=== PATIENT | male | born 1980 | race Caucasian/White ===

== ENCOUNTER 2016-09-18 10:47 | Emergency (ER) | payer MEDICAID, OTHER ==
[~2016-09-18] VITALS: Ht 180.3 cm; Wt 85.5 kg
[~2016-09-18 10:47] MED LIST: DIVA500T PO; DIVA500T15 PO; HYDR50CA3 PO; LOXA10CA PO; ONDAN4ODT PO
--- OUTSIDE RECORDS SUMMARY | 2016-09-18 10:52 | XMS REPORT | Continuity of Care Document ---
Author Author [facility] Organization [facility] Address Unknown Phone Unavailable Care Team Providers Care Housekeeping Staff Name Role Phone NO, LOCAL PHYSICIAN PCP Unavailable Insurance Providers Payer Name Policy Number Subscriber Name Relationship Self Pay Faina Guerrero 18 Self / Same As Patient Advance Directives Directive Response Recorded Date/Time Advance Directives No 03/22/16 6:39pm Resuscitation Status Full Code 03/22/16 6:39pm Chief Complaint and Reason for Visit Chief Complaint R URETRAL STONE,BRADYCARDIA Reason for Visit Bradycardia Right ureteral stone Problems Active Problems Medical Problem Onset Date Status Bradycardia Unknown Acute Right ureteral stone Unknown Acute Medications Current Home Medications Medication Dose Units Route Directions Days/Qty Instructions Start Date Hydroxyzine Pamoate 50 Mg 50 Mg Oral Twice A Day as needed for Anxiety 03/23/16 Loxapine Succinate 10 Mg 20 Mg Oral Bedtime TAKES 2 (10MG) CAPSULES Divalproex Sodium 500 Mg 500 Mg Oral Daily 03/23/16 Divalproex Sodium 500 Mg 1,000 Mg Oral Bedtime TAKES 2 (500MG) TABLETS 03/23/16 Past Home Medications Medication Directions Ordered Status Ondansetron Hcl 4 Mg Tab, 4 Mg Oral Every 4HRS 03/18/10 Discontinued Divalproex Sodium 500 Mg Tablet., 500 Mg Oral Daily 03/22/16 Discontinued Divalproex Sodium 500 Mg Tablet., 1000 Mg Oral Bedtime 03/22/16 Discontinued Social History Social History Problem Response Recorded Date/Time Alcohol Use Occasionally Uses 03/22/2016 6:40pm Recreational Drug Use No 03/22/2016 6:40pm Recent Foreign Travel No 03/22/2016 6:43pm Recent Infectious Disease Exposure No 03/22/2016 6:43pm Smoking Status Current Everyday Smoker 03/22/2016 6:42pm Type Used Cigarettes 03/23/2016 11:12am Query Response Start Date Stop Date Smoking Status Current Everyday Smoker Hospital Discharge Instructions Patient Instructions Physician Instructions Plan of Care/Instructions/FU: Aggressively hydrate been working in the hot humid conditions Activity as Tolerated: Yes Goal: Proper hydration Discharge Diet: No Restrictions Return to The Hospital For: Recurrence of symptoms Care Plan Patient Instructions:: Aggressively hydrate been working in the hot humid conditions Goal:: Proper hydration Plan of Care Discharge Date 03/23/16 10:40am Disposition 01 HOME, SELF-CARE Instructions/Education Provided DISCHARGE Prescriptions See Medication Section Care Plan and Goals See Discharge Instructions Section Functional Status Query Response Date Recorded Patient Orientation Person Place Time Situation Eyes Open March 23, 2016 11:12am Comprehension Ability Understands Concepts March 23, 2016 9:00am Allergies, Adverse Reactions, Alerts No known allergies. Immunizations No immunization records. Vital Signs Acute Vital Signs Vital Response Date/Time Temperature (Fahrenheit) 97.8 degrees F (97.6 - 99.5) 03/23/2016 10:40am Temperature (Calculated Celsius) 36.04130 degrees C (36.4 - 37.5) 03/23/2016 7:41am Temperature Source Tympanic 03/23/2016 10:40am Pulse Rate (adult) 63 bpm (60 - 90) 03/23/2016 10:40am Respiratory Rate 18 bpm (12 - 24) 03/23/2016 10:40am O2 Sat by Pulse Oximetry 96 % (88 - 100) 03/23/2016 10:40am Blood Pressure 132/70 mm Hg 03/23/2016 10:40am Blood Pressure Mean 76 mm Hg 03/23/2016 4:00am Pain Numeric Pain Scale 0-No Pain 03/23/2016 10:40am Height (Feet) 5 feet 03/22/2016 6:43pm Height (Inches) 11.00 inches 03/22/2016 6:43pm Height (Calculated Centimeters) 180.550433 cm 03/22/2016 6:43pm Weight (Pounds) 188 pounds 03/23/2016 6:00am Weight (Ounces) 6.4 oz 03/23/2016 6:00am Weight (Calculated Grams) 30257.803 gm 03/23/2016 6:00am Weight (Calculated Kilograms) 85.831150 kilograms 03/23/2016 6:00am Calculated BMI 26.5 03/22/2016 6:43pm Capillary Refill Capillary Refill Less Than 3 Seconds 03/22/2016 4:18pm Results Laboratory Results Test Name Result Units Flags Reference Collection Date/Time Result Date/ Time Comments White Blood Count 8.1 10^3/uL 4.3-11.0 03/23/2016 4:15am 03/23/2016 4: 58am Red Blood Count 5.21 10^6/uL 4.35-5.85 03/23/2016 4:15am 03/23/2016 4: 58am Hemoglobin 14.5 G/DL 13.3-17.7 03/23/2016 4:15am 03/23/2016 4:58am Hematocrit 42 % 40-54 03/23/2016 4:15am 03/23/2016 4:58am Mean Corpuscular Volume 81 FL 80-99 03/23/2016 4:1503/23/2016 4: 58am Mean Corpuscular Hemoglobin 28 PG 25-34 03/23/2016 4:15am 03/23/2016 4: 58am Mean Corpuscular Hemoglobin Concent 35 G/DL 32-36 03/23/2016 4:15am 09/2015 4:58am Red Cell Distribution Width 13.6 % 10.0-14.5 03/23/2016 4:15am 2015 4:58am Platelet Count 220 10^3/uL 130-400 03/23/2016 4:15am 03/23/2016 4:58am Mean Platelet Volume 10.0 FL 7.4-10.4 03/23/2016 4:15am 03/23/2016 4: 58am Neutrophils (%) (Auto) 48 % 42-75 03/23/2016 4:15am 03/23/2016 4:58am Lymphocytes (%) (Auto) 40 % 12-44 03/23/2016 4:15am 03/23/2016 4:58am Monocytes (%) (Auto) 10 % 0-12 03/23/2016 4:15am 03/23/2016 4:58am Eosinophils (%) (Auto) 2 % 0-10 03/23/2016 4:15am 03/23/2016 4:58am Basophils (%) (Auto) 0 % 0-10 03/23/2016 4:15am 03/23/2016 4:58am Neutrophils # (Auto) 3.9 X 10^3 1.8-7.8 03/23/2016 4:15am 03/23/2016 4: 58am Lymphocytes # (Auto) 3.3 X 10^3 1.0-4.0 03/23/2016 4:15am 03/23/2016 4: 58am Monocytes # (Auto) 0.8 X 10^3 0.0-1.0 03/23/2016 4:15am 03/23/2016 4: 58am Eosinophils # (Auto) 0.1 10^3/uL 0.0-0.3 03/23/2016 4:15am 03/23/2016 4 :58am Basophils # (Auto) 0.0 10^3/uL 0.0-0.1 03/23/2016 4:15am 03/23/2016 4: 58am Neutrophils % (Manual) 50 % 03/22/2016 2:20pm 03/22/2016 4:53pm Band Neutrophils 0 % 03/22/2016 2:20pm 03/22/2016 4:53pm Lymphocytes % (Manual) 40 % 03/22/2016 2:20pm 03/22/2016 4:53pm Monocytes % (Manual) 9 % 03/22/2016 2:20pm 03/22/2016 4:53pm Eosinophils % (Manual) 0 % 03/22/2016 2:20pm 03/22/2016 4:53pm Basophils % (Manual) 1 % 03/22/2016 2:20pm 03/22/2016 4:53pm Blood Morphology Comment NORMAL 03/22/2016 2:20pm 03/22/2016 4: 53pm Sodium Level 140 MMOL/L 135-145 03/22/2016 2:20pm 03/22/2016 4:53pm Potassium Level 3.5 MMOL/L L 3.6-5.0 03/22/2016 2:2003/22/2016 4:53pm Chloride Level 107 MMOL/L 98-107 03/22/2016 2:20pm 03/22/2016 4:53pm Carbon Dioxide Level 21 MMOL/L 21-32 03/22/2016 2:2003/22/2016 4: 53pm Anion Gap 12 MMOL/L 5-14 03/22/2016 2:03/22/2016 4:53pm Blood Urea Nitrogen 11 MG/DL 7-18 03/22/2016 2:03/22/2016 4:53pm Creatinine 1.03 MG/DL 0.60-1.30 03/22/2016 2:2003/22/2016 4:53pm BUN/Creatinine Ratio 11 03/22/2016 2:03/22/2016 4:53pm Estimat Glomerular Filtration Rate > 60 03/22/2016 2:2015 4:53pm GFR INTERPRETIVE DATA UNITS FOR ESTIMATED GFR (eGFR): mL/min/1.73 M2 REFERENCE RANGE FOR ESTIMATED GFR (eGFR) eGFR NORMAL eGFR >60 MODERATELY DECREASED eGFR 30-59 SEVERLY DECREASED eGFR 15-29 KIDNEY FAILURE <15 (OR DIALYSIS) Glucose Level 116 MG/DL H 70-105 03/22/2016 2:03/22/2016 4:53pm Calcium Level 9.5 MG/DL 8.5-10.1 03/22/2016 2:03/22/2016 4:53pm Total Bilirubin 0.6 MG/DL 0.1-1.0 03/22/2016 2:03/22/2016 4:53pm Alkaline Phosphatase 80 U/L 40-136 03/22/2016 2:03/22/2016 4:53pm Aspartate Amino Transf (AST/SGOT) 18 U/L 5-34 03/22/2016 2:pm 2015 4:53pm Alanine Aminotransferase (ALT/SGPT) 18 U/L 0-55 03/22/2016 2:20pm 03/22 4:53pm Total Protein 7.6 G/DL 6.4-8.2 03/22/2016 2:20pm 03/22/2016 4:53pm Albumin 4.8 G/DL H 3.2-4.5 03/22/2016 2:20pm 03/22/2016 4:53pm Procedures No known history of procedures. Encounters Encounter Location Arrival/Admit Date Discharge/Depart Date Attending Provider Discharged Inpatient (obs) [facility] 03/22/16 5:41pm 10:40am JESSICA SHRESTHA MD Recent Diagnosis Bradycardia Right ureteral stone
--- NOTE | 2016-09-18 10:55 | ED Neurological Problem ---
General Stated Complaint: SEIZURE Source: patient, EMS Exam Limitations: no limitations History of Present Illness Time seen by provider: 10:54 Initial Comments To ER per EMS from home with reports of a seizure. This began just prior to arrival. He does have a seizure history and takes medication for this. He is back to normal now alert and oriented. Denies skipping or missing any doses of seizure medications. Timing/Duration: 1/2 hour Severity: mild Associated Symptoms: seizures Allergies and Home Medications Allergies Coded Allergies: No Known Drug Allergies (Verified , 04/10/08) Home Medications Divalproex Sodium 500 Mg Tab.er.24h 500 MG PO DAILY (Reported) Divalproex Sodium 500 Mg Tab.er.24h 1,000 MG PO HS (Reported) TAKES 2 (500MG) TABLETS Hydroxyzine Pamoate 50 Mg Capsule 50 MG PO BID PRN PRN ANXIETY (Reported) Loxapine Succinate 10 Mg Capsule 20 MG PO HS (Reported) TAKES 2 (10MG) CAPSULES Constitutional: see HPI Eyes: No Symptoms Reported Ears, Nose, Mouth, Throat: no symptoms reported Respiratory: no symptoms reported Cardiovascular: no symptoms reported Musculoskeletal: no symptoms reported Skin: no symptoms reported Psychiatric/Neurological: See HPI Endocrine: No Symptoms Reported Past Iaoojtf-Xvounk-Tqklhb Hx Patient Social History Type Used: Cigarettes Recent Hopitalizations: No Seasonal Allergies Seasonal Allergies: No Surgeries HX Surgeries: Yes Surgeries: Orthopedic Respiratory Hx Respiratory Disorders: No Cardiovascular Hx Cardiac Disorders: No Neurological Hx Neurological Disorders: Yes Reproductive System Hx Reproductive Disorders: No Genitourinary Hx Genitourinary Disorders: No Gastrointestinal Hx Gastrointestinal Disorders: No Musculoskeletal Hx Musculoskeletal Disorders: Yes Musculoskeletal Disorders: Fractures Endocrine Hx Endocrine Disorders: No HEENT HX ENT Disorders: No Cancer Hx Cancer: No Psychosocial Hx Psychiatric Problems: Yes Behavioral Health Disorders: Anxiety, Bipolar Integumentary HX Skin/Integumentary Disorder: No Blood Transfusions Hx Blood Disorders: No Physical Exam Vital Signs Vital Sign - Last 12Hours 09/18/16 10:55 Temp 97.4 Pulse 96 Resp 14 B/P 120/79 Pulse Ox 97 O2 Delivery Room Air Capillary Refill : General Appearance: WD/WN no apparent distress HEENT: PERRL/EOMI normal ENT inspection Neck: non-tender full range of motion Respiratory: no respiratory distress no accessory muscle use Gastrointestinal: normal bowel sounds non tender soft Extremities: normal range of motion non-tender normal inspection Neurologic/Psychiatric: alert normal mood/affect oriented x 3 Skin: normal color warm/dry Progress/Results/Core Measures Results/Orders Lab Results Laboratory Tests Test 09/18/16 10:54 Range/Units Alanine Aminotransferase (ALT/SGPT) 33 0-55 U/L Albumin 4.5 3.2-4.5 G/DL Alkaline Phosphatase 90 40-136 U/L Anion Gap 14 5-14 MMOL/L Aspartate Amino Transf (AST/SGOT) 25 5-34 U/L BUN/Creatinine Ratio 9 Basophils # (Auto) 0.1 0.0-0.1 10^3/uL Basophils (%) (Auto) 1 0-10 % Blood Urea Nitrogen 9 7-18 MG/DL Calcium Level 9.3 8.5-10.1 MG/DL Carbon Dioxide Level 18 L 21-32 MMOL/L Chloride Level 107 98-107 MMOL/L Creatinine 1.02 0.60-1.30 MG/DL Eosinophils # (Auto) 0.2 0.0-0.3 10^3/uL Eosinophils (%) (Auto) 2 0-10 % Estimat Glomerular Filtration Rate > 60 Glucose Level 139 H 70-105 MG/DL Hematocrit 47 40-54 % Hemoglobin 16.3 13.3-17.7 G/DL Lymphocytes # (Auto) 3.6 1.0-4.0 X 10^3 Lymphocytes (%) (Auto) 41 12-44 % Mean Corpuscular Hemoglobin 28 25-34 PG Mean Corpuscular Hemoglobin Concent 34 32-36 G/DL Mean Corpuscular Volume 80 80-99 FL Mean Platelet Volume 9.8 7.4-10.4 FL Monocytes # (Auto) 0.6 0.0-1.0 X 10^3 Monocytes (%) (Auto) 7 0-12 % Neutrophils # (Auto) 4.4 1.8-7.8 X 10^3 Neutrophils (%) (Auto) 50 42-75 % Platelet Count 278 130-400 10^3/uL Potassium Level 4.2 3.6-5.0 MMOL/L Red Blood Count 5.93 H 4.35-5.85 10^6/uL Red Cell Distribution Width 13.3 10.0-14.5 % Serum Alcohol < 10 <10 MG/DL Sodium Level 139 135-145 MMOL/L Total Bilirubin 0.3 0.1-1.0 MG/DL Total Protein 7.7 6.4-8.2 G/DL Valproic Acid (Depakene) Level 33.1 L 50.0-100.0 UG/ML White Blood Count 8.7 4.3-11.0 10^3/uL My Orders Orders-KARLI REEDER APRN Cbc With Automated Diff (09/18/16 10:53) Comprehensive Metabolic Panel (09/18/16 10:53) Ua Culture If Indicated (09/18/16 10:53) Drug Screen Stat (Urine) (09/18/16 10:53) Saline Lock/Iv-Start (09/18/16 10:53) Ns Iv 1000 Ml (Sodium Chloride 0.9%) (09/18/16 11:00) Alcohol (09/18/16 10:56) Valproic Acid (09/18/16 11:22) Vital Signs/I&O Vital Sign - Last 12Hours 09/18/16 10:55 Temp 97.4 Pulse 96 Resp 14 B/P 120/79 Pulse Ox 97 O2 Delivery Room Air Departure Impression Impression: Primary Impression: Seizure disorder Disposition: 01 HOME, SELF-CARE Condition: Stable Departure-Patient Inst. Decision time for Depature: 10:55 Referrals: NO,LOCAL PHYSICIAN (PCP/Family) Primary Care Physician Patient Instructions: Seizures Add. Discharge Instructions: 1. Return to ER for any concerns 2. Follow-up with your doctor next week 3. Continue taking your Depakote. However, your Depakote level was low so you need to take 2 pills in the morning and 2 pills at night KARLI REEDER APRN Sep 18, 2016 10:55
[2016-09-18] MEDS ORDERED: NS IV 1000 ML 1,000 ML IV SCH (11:00)
[2016-09-18 11:01] LABS: BASOPHILS # (AUTO) 0.1 10^3/uL (0.0-0.1); BASOPHILS % (AUTO) 1 % (0-10); EOSINOPHILS # (AUTO) 0.2 10^3/uL (0.0-0.3); EOSINOPHILS % (AUTO) 2 % (0-10); LYMPHOCYTES # (AUTO) 3.6 X 10^3 (1.0-4.0); LYMPHOCYTES % (AUTO) 41 % (12-44); MEAN CORPUSCULAR HEMOGLOBIN 28 PG (25-34); MEAN CORPUSCULAR HGB CONC 34 G/DL (32-36); MEAN CORPUSCULAR VOLUME 80 FL (80-99); MEAN PLATELET VOLUME 9.8 FL (7.4-10.4); MONOCYTES # (AUTO) 0.6 X 10^3 (0.0-1.0); MONOCYTES % (AUTO) 7 % (0-12); NEUTROPHILS # (AUTO) 4.4 X 10^3 (1.8-7.8); NEUTROPHILS % (AUTO) 50 % (42-75); PLATELET COUNT 278 10^3/uL (130-400); RED BLOOD COUNT 5.93 10^6/uL (4.35-5.85); RED CELL DISTRIBUTION WIDTH 13.3 % (10.0-14.5); WHITE BLOOD COUNT 8.7 10^3/uL (4.3-11.0)
[2016-09-18 11:19] LABS: ALANINE AMINOTRANSFERASE 33 U/L (0-55); ALBUMIN 4.5 G/DL (3.2-4.5); ANION GAP 14 MMOL/L (5-14); ASPARTATE AMINO TRANSFERASE 25 U/L (5-34); BILIRUBIN,TOTAL 0.3 MG/DL (0.1-1.0); BLOOD UREA NITROGEN 9 MG/DL (7-18); BUN/CREATININE RATIO 9; CALCIUM 9.3 MG/DL (8.5-10.1); CARBON DIOXIDE 18 MMOL/L (21-32); CHLORIDE 107 MMOL/L (98-107); CREATININE SERUM 1.02 MG/DL (0.60-1.30); GFR ESTIMATED > 60; GLUCOSE 139 MG/DL (70-105); POTASSIUM 4.2 MMOL/L (3.6-5.0); SODIUM 139 MMOL/L (135-145); TOTAL PROTEIN 7.7 G/DL (6.4-8.2)
[2016-09-18 11:21] LABS: ALCOHOL < 10 MG/DL (<10)
[2016-09-18 12:05] VITALS: BP 120/79
== END 2016-09-18 12:05 | disposition home or self-care (01) ==
LOC: EDUNIT# 10:47 → ER 10:48
DX: G40.909 Epilepsy, unspecified, not intractable, without status epilepticus (principal); Z79.899 Other long term (current) drug therapy
CPT/HCPCS: 36415; 80053; 80164; 80320; 85025

== ENCOUNTER 2016-11-15 19:31 | Emergency (ER) | payer MEDICAID ==
[~2016-11-15] VITALS: Ht 180.3 cm; Wt 90.7 kg
[2016-11-15] MEDS ORDERED: RX-NITROGLYCERIN 0.4 MG TAB BTL 25'S SL PRN (19:45)
[2016-11-15] MEDS ORDERED: ASPIRIN 81 MG CHEW (CHILDREN'S ASA) PO ONE (19:45)
[2016-11-15 19:49] LABS: BASOPHILS % (AUTO) 0 % (0-10); EOSINOPHILS # (AUTO) 0.1 10^3/uL (0.0-0.3); EOSINOPHILS % (AUTO) 1 % (0-10); LYMPHOCYTES # (AUTO) 3.2 X 10^3 (1.0-4.0); LYMPHOCYTES % (AUTO) 30 % (12-44); MEAN CORPUSCULAR HEMOGLOBIN 28 PG (25-34); MEAN CORPUSCULAR HGB CONC 35 G/DL (32-36); MEAN CORPUSCULAR VOLUME 81 FL (80-99); MONOCYTES # (AUTO) 0.8 X 10^3 (0.0-1.0); MONOCYTES % (AUTO) 7 % (0-12); NEUTROPHILS # (AUTO) 6.6 X 10^3 (1.8-7.8); NEUTROPHILS % (AUTO) 62 % (42-75); PLATELET COUNT 274 10^3/uL (130-400); RED BLOOD COUNT 6.03 10^6/uL (4.35-5.85); RED CELL DISTRIBUTION WIDTH 13.9 % (10.0-14.5); WHITE BLOOD COUNT 10.6 10^3/uL (4.3-11.0)
[2016-11-15 19:55] LABS: PROTHROMBIN TIME PATIENT 13.1 SEC (12.2-14.7)
[2016-11-15 20:05] LABS: ALANINE AMINOTRANSFERASE 15 U/L (0-55); ALBUMIN 4.6 G/DL (3.2-4.5); AMYLASE 39 U/L (25-125); ANION GAP 11 MMOL/L (5-14); ASPARTATE AMINO TRANSFERASE 15 U/L (5-34); BILIRUBIN,TOTAL 0.4 MG/DL (0.1-1.0); BLOOD UREA NITROGEN 9 MG/DL (7-18); BUN/CREATININE RATIO 10; CALCIUM 9.4 MG/DL (8.5-10.1); CARBON DIOXIDE 25 MMOL/L (21-32); CHLORIDE 104 MMOL/L (98-107); CREATINE KINASE 187 U/L (30-200); GFR ESTIMATED > 60; GLUCOSE 95 MG/DL (70-105); LIPASE 19 U/L (8-78); MAGNESIUM 2.1 MG/DL (1.8-2.4); POTASSIUM 3.7 MMOL/L (3.6-5.0); SODIUM 140 MMOL/L (135-145); TOTAL PROTEIN 7.8 G/DL (6.4-8.2)
[2016-11-15 20:12] LABS: TROPONIN I < 0.30 NG/ML (<0.30)
--- NOTE | 2016-11-15 20:18 | Diagnostic Imaging Report ---
CHEST 1 VIEW, AP/PA ONLY Indication: Chest pain Comparison: 03/18/2010 Findings: No focal airspace disease in the visualized lungs. Please note that the posterior lower lobes are poorly evaluated by portable radiography. No pleural effusion or pneumothorax. Normal cardiomediastinal silhouette. Impression: No acute cardiopulmonary process by portable radiography. Dictated by: Dictated on workstation # [id number]
--- NOTE | 2016-11-15 21:24 | ED Chest Pain ---
General Chief Complaint: Chest Pain Stated Complaint: CP Nursing Triage Note: PT TO ED 6 W/ FAMILY FOR C/O CP ONSET YESTERDAY, WORSE TODAY. REPORTS PAIN ET TINGLING RADIATES INTO LT ARM. DENIES CARDIAC HX BUT DOES REPORT HX OF SEIZURES. Nursing Sepsis Screen: No Definite Risk Source: patient Exam Limitations: no limitations History of Present Illness Time seen by provider: 19:42 Initial Comments PT ARRIVES VIA POV FROM HOME C/O CHEST PAIN--LEFT LOWER CHEST--SINCE YESTERDAY PAIN BEGAN WHILE SITTING, AND IS CONSTANT. EXHALING CAUSES INCREASED PAIN, NOTHING IMPROVES PAIN. HAS NOT TAKEN ANYTHING FOR PAIN YESTERDAY, PAIN RADIATED TO LEFT ARM AND HIS LEFT HAND WAS NUMB, BUT NOT TODAY NO SHORTNESS OF BREATH NO PARESTHESIAS OR MOTOR DEFICITS TODAY NO SWEATS NO COUGH NO SWELLING IN LEGS/ FEET OR PAIN IN CALVES NO HISTORY OF SIMILAR. PCP: [facility] Allergies and Home Medications Allergies Coded Allergies: No Known Drug Allergies (Verified , 04/10/08) Home Medications Divalproex Sodium 500 Mg Tab.er.24h, 500 MG PO DAILY, (Reported) Divalproex Sodium 500 Mg Tab.er.24h, 1,000 MG PO HS, (Reported) TAKES 2 (500MG) TABLETS Hydroxyzine Pamoate 50 Mg Capsule, 50 MG PO BID PRN for ANXIETY, (Reported) Loxapine Succinate 10 Mg Capsule, 20 MG PO HS, (Reported) TAKES 2 (10MG) CAPSULES Review of Systems Constitutional: no symptoms reported Respiratory: No Symptoms Reported Cardiovascular: See HPI, Chest Pain Gastrointestinal: No Symptoms Reported Genitourinary: No Symptoms Reported Musculoskeletal: see HPI Skin: no symptoms reported Psychiatric/Neurological: See HPI Endocrine: No Symptoms Reported Hematologic/Lymphatic: No Symptoms Reported Past Okxzhpo-Sysnvv-Gucxnz Hx Patient Social History Alcohol Use: Occasionally Uses (HISTORY OF ABUSE, NOW ONLY "OCCASIONAL" USE) Recreational Drug Use: Yes (THC) Smoking Status: Current Everyday Smoker (1 PPD) Type Used: Cigars, Cigarettes Recent Foreign Travel: No Contact w/Someone Who Travel: No Recent Infectious Disease Expo: No Recent Hopitalizations: No Seasonal Allergies Seasonal Allergies: No Surgeries HX Surgeries: Yes Surgeries: Orthopedic Respiratory Hx Respiratory Disorders: No Cardiovascular Hx Cardiac Disorders: No Neurological Hx Neurological Disorders: Yes Neurological Disorders: Seizure Disorder Reproductive System Hx Reproductive Disorders: No Genitourinary Hx Genitourinary Disorders: No Gastrointestinal Hx Gastrointestinal Disorders: No Musculoskeletal Hx Musculoskeletal Disorders: Yes Musculoskeletal Disorders: Fractures Endocrine Hx Endocrine Disorders: No HEENT HX ENT Disorders: No Cancer Hx Cancer: No Psychosocial Hx Psychiatric Problems: Yes Behavioral Health Disorders: Anxiety, Bipolar, Depression Integumentary HX Skin/Integumentary Disorder: No Blood Transfusions Hx Blood Disorders: No Physical Exam Vital Signs Vital Sign - Last 12Hours 11/15/16 19:34 Temp 98.8 Pulse 62 Resp 16 B/P (MAP) 127/82 Pulse Ox 96 O2 Delivery Room Air Capillary Refill : Less Than 3 Seconds General Appearance: No Apparent Distress, WD/WN, Other (DIRTY, MALODOROUS, CONSTANT MOUTH MOVEMENTS) HEENT: PERRL/EOMI, Other (VERY POOR DENTITON--UPPER TEETH MISSING, REMAINING TEETH WITH EXTENSIVE DECAY) Neck: Full Range of Motion, Normal Inspection, Non Tender, Supple, No Carotid Bruit, No JVD Respiratory: Chest Non Tender, Normal Breath Sounds, No Accessory Muscle Use, No Respiratory Distress, Other Cardiovascular: Regular Rate, Rhythm, No Edema, No JVD, No Murmur, Normal Peripheral Pulses Gastrointestinal: Normal Bowel Sounds, No Organomegaly, No Pulsatile Mass, Non Tender, Soft Extremity: Normal Capillary Refill, Normal Inspection, Normal Range of Motion, Non Tender, No Calf Tenderness Neurologic/Psychiatric: Alert, Oriented x3, No Motor/Sensory Deficits, Normal Mood/Affect, senior safety management consultant II-XII Norm as Tested Skin: Normal Color, No Rash Progress/Results/Core Measures Results/Orders Lab Results Laboratory Tests Test 11/15/16 19:41 11/15/16 20:54 Range/Units White Blood Count 10.6 4.3-11.0 10^3/uL Red Blood Count 6.03 H 4.35-5.85 10^6/uL Hemoglobin 17.0 13.3-17.7 G/DL Hematocrit 49 40-54 % Mean Corpuscular Volume 81 80-99 FL Mean Corpuscular Hemoglobin 28 25-34 PG Mean Corpuscular Hemoglobin Concent 35 32-36 G/DL Red Cell Distribution Width 13.9 10.0-14.5 % Platelet Count 274 130-400 10^3/uL Mean Platelet Volume 10.0 7.4-10.4 FL Neutrophils (%) (Auto) 62 42-75 % Lymphocytes (%) (Auto) 30 12-44 % Monocytes (%) (Auto) 7 0-12 % Eosinophils (%) (Auto) 1 0-10 % Basophils (%) (Auto) 0 0-10 % Neutrophils # (Auto) 6.6 1.8-7.8 X 10^3 Lymphocytes # (Auto) 3.2 1.0-4.0 X 10^3 Monocytes # (Auto) 0.8 0.0-1.0 X 10^3 Eosinophils # (Auto) 0.1 0.0-0.3 10^3/uL Basophils # (Auto) 0.0 0.0-0.1 10^3/uL Prothrombin Time 13.1 12.2-14.7 SEC INR Comment 1.0 0.8-1.4 Activated Partial Thromboplast Time 29 24-35 SEC Sodium Level 140 135-145 MMOL/L Potassium Level 3.7 3.6-5.0 MMOL/L Chloride Level 104 98-107 MMOL/L Carbon Dioxide Level 25 21-32 MMOL/L Anion Gap 11 5-14 MMOL/L Blood Urea Nitrogen 9 7-18 MG/DL Creatinine 0.90 0.60-1.30 MG/DL Estimat Glomerular Filtration Rate > 60 BUN/Creatinine Ratio 10 Glucose Level 95 70-105 MG/DL Calcium Level 9.4 8.5-10.1 MG/DL Magnesium Level 2.1 1.8-2.4 MG/DL Total Bilirubin 0.4 0.1-1.0 MG/DL Aspartate Amino Transf (AST/SGOT) 15 5-34 U/L Alanine Aminotransferase (ALT/SGPT) 15 0-55 U/L Alkaline Phosphatase 83 40-136 U/L Total Creatine Kinase 187 30-200 U/L Creatine Kinase MB 1.1 <6.6 NG/ML Troponin I < 0.30 <0.30 NG/ML B-Type Natriuretic Peptide 12.0 <100.0 PG/ML Total Protein 7.8 6.4-8.2 G/DL Albumin 4.6 H 3.2-4.5 G/DL Amylase Level 39 25-125 U/L Lipase 19 8-78 U/L Serum Alcohol < 10 <10 MG/DL Urine Opiates Screen NEGATIVE NEGATIVE Urine Oxycodone Screen NEGATIVE NEGATIVE Urine Methadone Screen NEGATIVE NEGATIVE Urine Propoxyphene Screen NEGATIVE NEGATIVE Urine Barbiturates Screen NEGATIVE NEGATIVE Ur Tricyclic Antidepressants Screen NEGATIVE NEGATIVE Urine Phencyclidine Screen NEGATIVE NEGATIVE Urine Amphetamines Screen NEGATIVE NEGATIVE Urine Methamphetamines Screen NEGATIVE NEGATIVE Urine Benzodiazepines Screen NEGATIVE NEGATIVE Urine Cocaine Screen NEGATIVE NEGATIVE Urine Cannabinoids Screen POSITIVE H NEGATIVE My Orders Orders - PARUL NDIAYE DO Amylase (11/15/16 19:43) Cbc With Automated Diff (11/15/16 19:43) Comprehensive Metabolic Panel (11/15/16 19:43) Creatine Kinase (11/15/16 19:43) Creatine Kinase Mb (11/15/16 19:43) Lipase (11/15/16 19:43) Partial Thromboplastin Time (11/15/16 19:43) Protime With Inr (11/15/16 19:43) Troponin I (11/15/16 19:43) Chest 1 View, Ap/Pa Only (11/15/16 19:43) O2 (11/15/16 19:43) Ekg Tracing (11/15/16 19:43) Aspirin Chewable Tablet (Baby Aspirin Ch (11/15/16 19:45) Rx-Nitroglycerin Sl Tabs (Rx-Nitrostat S (11/15/16 19:45) BNP (11/15/16 19:43) Monitor-Rhythm Ecg Trace Only (11/15/16 19:43) Magnesium (11/15/16 19:43) Alcohol (11/15/16 19:49) Drug Screen Stat (Urine) (11/15/16 19:49) Medications Given in ED Current Medications Medications Dose Ordered Sig/Celestino Route Start Time Stop Time Status Last Admin Dose Admin Aspirin 324 mg ONCE ONCE PO 11/15/16 19:45 11/15/16 19:46 DC 11/15/16 20:03 324 MG Nitroglycerin 0.4 mg UD PRN SL 11/15/16 19:45 11/15/16 21:32 DC 11/15/16 20:03 0.4 MG Vital Signs/I&O Vital Sign - Last 12Hours 11/15/16 11/15/16 11/15/16 19:34 19:34 21:32 Temp 98.8 Pulse 62 68 Resp 16 20 B/P (MAP) 127/82 Pulse Ox 96 95 O2 Delivery Room Air Room Air Blood Pressure Mean: 97 Progress Note : Progress Note PAIN -FREE WITH NTG X 2 ADVISED PT OF NEED FOR ADMIT, AND ADDITIONAL CARDIAC TESTING. PT STATES HE CANNOT STAY, HE HAS NO ONE TO CARE FOR HIS SON. PT SIGNED OUT AMA. PT ADVISED TO RETURN TO ER IF SYMPTOMS RETURNED, OTHERWISE FOLLOW UP WITH [facility] IN AM FOR FURTHER CARE ECG Initial ECG Impression Time: 19:51 Initial ECG Rate: 63 Initial ECG Rhythm: Normal Sinus Initial ECG Impression: Normal Initial ECG Comparisson: Unchanged Diagnostic Imaging Comments CXR--NO ACUTE PROCESS, PER RADIOLOGIST REPORT Reviewed: Reviewed by Me Departure Impression Impression: Primary Impression: Chest pain Additional Impression: Left against medical advice Disposition: AGAINST MEDICAL ADVICE Condition: Against Medical Advice Departure-Patient Inst. Referrals: NO,LOCAL PHYSICIAN (PCP/Family) Primary Care Physician Patient Instructions: Chest Pain (DC), Heart Healthy Diet Add. Discharge Instructions: FOLLOW UP WITH [facility] TOMORROW RETURN TO ER IF WORSE All discharge instructions reviewed with patient and/or family. Voiced understanding. PARUL NDIAYE DO Nov 15, 2016 21:24
[2016-11-15 21:32] VITALS: BP 124/84
--- OUTSIDE RECORDS SUMMARY | 2016-11-30 19:14 | XMS REPORT ---
Author Author JAY SHOOK [employer] Address Unknown Phone Unavailable Care Team Providers Care Animal Anatomist Name Role Phone JAY SHOOK CP Unavailable Allergies, Adverse Reactions, Alerts Substance Reaction Event Type N.K.D.A. Info Not Available Non Drug Allergy Problems Problem Type Condition Code Onset Dates Condition Status Problem Other bipolar disorder F31.89 Active Problem Anxiety disorder, unspecified F41.9 Active Problem Cannabis abuse F12.10 Active Assessment Cannabis abuse F12.10 Active Assessment Other bipolar disorder F31.89 Active Assessment Anxiety disorder, unspecified F41.9 Active Medications Medication Code System Code Instructions Start Date End Date Status Dosage HydrOXYzine Pamoate [facility] [address]-96 50 mg Orally 2 times a day for anxiety October 21, 2015 1 capsule Depakote ER [facility] [address]-31 500 MG Orally take 1 tab in AM and 2 at HS May 23, 2014 1 tablet Loxapine Succinate [facility] [address]-30 10 mg Orally 1 tab at HS for bipolar disorder October 21, 2015 1 capsule Procedures Procedure Coding System Code Date Office Visit, Est Pt., Level 4 CPT-4 11426 Jun 01, 2016 Vital Signs Date/Time: Jun 01, 2016 Cardiac Monitoring Heart Rate 52 bpm Weight 197.8 lbs Height 69 in BMI 29.21 Index Blood Pressure Diastolic 64 mmHg Blood Pressure Systolic 111 mmHg Results No Known Results Summary Purpose [employer] Submission
--- OUTSIDE RECORDS SUMMARY | 2016-11-30 19:14 | XMS REPORT ---
Author Author PENNIE GERMAN Organization [employer] Address Unknown Phone Unavailable Care Team Providers Care Technical Clerk Name Role Phone PENNIE GERMAN CP Unavailable Allergies, Adverse Reactions, Alerts Substance Reaction Event Type N.K.D.A. Info Not Available Non Drug Allergy Problems Problem Type Condition ICD-9 Code Onset Dates Condition Status Problem Bipolar disorder, unspecified 296.80 Active Problem Panic disorder without agoraphobia 300.01 Active Problem Generalized anxiety disorder 300.02 Active Assessment Wheezing 786.07 Active Assessment Cough 786.2 Active Problem Cannabis dependence, unspecified abuse 304.30 Active Assessment Sinusitis 473.9 Active Medications Medication Code System Code Instructions Start Date End Date Status Dosage PredniSONE [facility] [address]-32 20 MG Orally Once a day Apr 21, 2015Apr 2 tablets with food or milk Claritin [facility] [address]-29 10 MG Orally Once a day at HS Apr 21, 2015 Jun 20, 2015 1 tablet Doxycycline Hyclate [facility] [address]-20 100 MG Orally every 12 hrs Apr 21, 2015 Apr 26, 2015 1 capsule Abilify [facility] [address]-66 15 mg Sep 09, 2014 1 tablet by Oral route 1 time per day Depakote ER [facility] [address]-38 500 mg May 23, 2014 1 tablet by Oral route 2 times per day 1 tab in AM and 2 at HS Procedures Procedure Coding System Code Date MEASURE BLOOD OXYGEN LEVEL CPT-4 26513 Apr 21, 2015 Office Visit, Est Pt., Level 3 CPT-4 03711 Apr 21, 2015 Vital Signs Date/Time: Apr 21, 2015 Temperature 97.8 F Weight 182.8 lbs Height 69 in Oximetry 96 % Blood Pressure Diastolic 78 mmHg Blood Pressure Systolic 116 mmHg Cardiac Monitoring Heart Rate 78 bpm BMI 26.99 Index Results No Known Results Summary Purpose [employer] Submission
--- OUTSIDE RECORDS SUMMARY | 2016-11-30 19:14 | XMS REPORT | Continuity of Care Document ---
Author Author [facility] Address Unknown Phone Unavailable Allergies Medications Problems Date Dx Coded Attending Type Code Diagnosis Diagnosed By 04/30/2008 NICOLÁS VIVAR PHD 780.39 SEIZURES OTHER 04/30/2008 NICOLÁS VIVAR PHD 780.39 SEIZURES OTHER 04/30/2008 JAY SHOOK APRN 780.39 SEIZURES OTHER 04/30/2008 NICOLÁS VIVAR PHD 780.39 SEIZURES OTHER 04/30/2008 JAY SHOOK APRN 780.39 SEIZURES OTHER 04/30/2008 JAY SHOOK APRN 780.39 SEIZURES OTHER 04/30/2008 JAY SHOOK APRN 780.39 SEIZURES OTHER 04/30/2008 NICOLÁS VIVAR PHD 780.39 SEIZURES OTHER 04/30/2008 JAY SHOOK APRN 780.39 SEIZURES OTHER 10/23/2008 NICOLÁS VIVAR PHD 345.9 SEIZURE DISORDER 10/23/2008 NICOLÁS VIVAR PHD 345.9 SEIZURE DISORDER 10/23/2008 JAY SHOOK APRN 345.9 SEIZURE DISORDER 10/23/2008 NICOLÁS VIVAR PHD 345.9 SEIZURE DISORDER 10/23/2008 JAY SHOOK APRN 345.9 SEIZURE DISORDER 10/23/2008 JAY SHOOK APRN 345.9 SEIZURE DISORDER 10/23/2008 JAY SHOOK APRN 345.9 SEIZURE DISORDER 10/23/2008 NICOLÁS VIVAR PHD 345.9 SEIZURE DISORDER 10/23/2008 JAY SHOOK APRN 345.9 SEIZURE DISORDER 03/16/2010 NICOLÁS VIVAR PHD V82.0 SPECIAL SCREENING FOR SKIN CONDITIONS 03/16/2010 NICOLÁS VIVAR PHD V82.0 SPECIAL SCREENING FOR SKIN CONDITIONS 03/16/2010 JAY SHOOK APRN V82.0 SPECIAL SCREENING FOR SKIN CONDITIONS 03/16/2010 NICOLÁS VIVAR PHD V82.0 SPECIAL SCREENING FOR SKIN CONDITIONS 03/16/2010 JAY SHOOK APRN V82.0 SPECIAL SCREENING FOR SKIN CONDITIONS 03/16/2010 JAY SHOOK APRN V82.0 SPECIAL SCREENING FOR SKIN CONDITIONS 03/16/2010 JAY SHOOK APRN V82.0 SPECIAL SCREENING FOR SKIN CONDITIONS 03/16/2010 NICOLÁS VIVAR PHD V82.0 SPECIAL SCREENING FOR SKIN CONDITIONS 03/16/2010 JAY SHOOK APRN V82.0 SPECIAL SCREENING FOR SKIN CONDITIONS 06/10/2010 NICOLÁS VIVAR PHD 304.90 UNSPECIFIED DRUG DEPENDENCE UNSPECIFIED USE 06/10/2010 NICOLÁS VIVAR PHD 304.90 UNSPECIFIED DRUG DEPENDENCE UNSPECIFIED USE 06/10/2010 JAY SHOOK APRN 304.90 UNSPECIFIED DRUG DEPENDENCE UNSPECIFIED USE 06/10/2010 NICOLÁS VIVAR PHD 304.90 UNSPECIFIED DRUG DEPENDENCE UNSPECIFIED USE 06/10/2010 JAY SHOOK APRN 304.90 UNSPECIFIED DRUG DEPENDENCE UNSPECIFIED USE 06/10/2010 JAY SHOOK APRN 304.90 UNSPECIFIED DRUG DEPENDENCE UNSPECIFIED USE 06/10/2010 JAY SHOOK APRN 304.90 UNSPECIFIED DRUG DEPENDENCE UNSPECIFIED USE 06/10/2010 NICOLÁS VIVAR PHD 304.90 UNSPECIFIED DRUG DEPENDENCE UNSPECIFIED USE 06/10/2010 JAY SHOOK APRN 304.90 UNSPECIFIED DRUG DEPENDENCE UNSPECIFIED USE 02/01/2014 NICOLÁS VIVAR PHD 296.80 MO BIPOLAR NOS 02/01/2014 NICOLÁS VIVAR PHD 300.02 AN GEN ANXIETY 02/01/2014 NICOLÁS VIVAR PHD 296.80 MO BIPOLAR NOS 02/01/2014 NICOLÁS VIVAR PHD 300.02 AN GEN ANXIETY 02/01/2014 JAY SHOOK APRN 296.80 MO BIPOLAR NOS 02/01/2014 JAY SHOOK APRN 300.02 AN GEN ANXIETY 02/01/2014 NICOLÁS VIVAR PHD 296.80 MO BIPOLAR NOS 02/01/2014 NICOLÁS VIVAR PHD 300.02 AN GEN ANXIETY 02/01/2014 JAY SHOOK APRN 296.80 MO BIPOLAR NOS 02/01/2014 JAY SHOOK APRN 300.02 AN GEN ANXIETY 02/01/2014 JAY SHOOK APRN 296.80 MO BIPOLAR NOS 02/01/2014 JAY SHOOK APRN 300.02 AN GEN ANXIETY 02/01/2014 JAY SHOOK APRN 296.80 MO BIPOLAR NOS 02/01/2014 JAY SHOOK APRN 300.02 AN GEN ANXIETY 02/01/2014 NICOLÁS VIVAR PHD 296.80 MO BIPOLAR NOS 02/01/2014 NICOLÁS VIVAR PHD 300.02 AN GEN ANXIETY 02/01/2014 JAY SHOOK APRN 296.80 MO BIPOLAR NOS 02/01/2014 JAY SHOOK APRN 300.02 AN GEN ANXIETY 03/14/2014 JAY SHOOK APRN 300.01 AN PANIC DIS W/O AGORA 03/14/2014 JAY SOHOK APRN 304.30 CANNABIS DEPENDENCE 03/14/2014 NICOLÁS VIVAR PHD 300.01 AN PANIC DIS W/O AGORA 03/14/2014 NICOLÁS VIVAR PHD 304.30 CANNABIS DEPENDENCE 03/14/2014 JAY SHOOK APRN 300.01 AN PANIC DIS W/O AGORA 03/14/2014 JAY SHOOK APRN 304.30 CANNABIS DEPENDENCE 03/14/2014 JAY SHOOK APRN 300.01 AN PANIC DIS W/O AGORA 03/14/2014 JAY SHOOK APRN 304.30 CANNABIS DEPENDENCE 03/14/2014 JAY SHOOK APRN 300.01 AN PANIC DIS W/O AGORA 03/14/2014 JAY SHOOK APRN 304.30 CANNABIS DEPENDENCE 03/14/2014 NICOLÁS VIVAR PHD 300.01 AN PANIC DIS W/O AGORA 03/14/2014 NICOLÁS VIVAR PHD 304.30 CANNABIS DEPENDENCE 03/14/2014 JAY SHOOK APRN 300.01 AN PANIC DIS W/O AGORA 03/14/2014 JAY SHOOK APRN 304.30 CANNABIS DEPENDENCE Procedures Code [place] [address] PSYCH DIAGNOSTIC EVALUATION 02/01/2014 15436 PSYTX PT&/FAMILY 45 MINUTES 02/21/2014 95569 PSYTX PT&/FAMILY 45 MINUTES 03/15/2014 32358 PSYTX PT&/FAMILY 45 MINUTES 04/04/2014 84089 PSYTX PT&/FAMILY 30 MINUTES 07/11/2014 Results Encounters ACCT No. Visit Date/Time Discharge Status Pt. Type Provider Facility Loc./Unit Complaint [id number] 09/05/2014 10:34:00 09/05/2014 23: 59:59 CLS Outpatient JAY SHOOK APRN [id number] 07/11/2014 13:37:00 07/11/2014 23: 59:59 NICOLÁS Forte PHD [id number] 05/23/2014 16:30:00 05/23/2014 23: 59:59 CLS Outpatient JAY SHOOK APRN [id number] 04/18/2014 11:21:00 04/18/2014 23: 59:59 JULIEN Outpatient JAY SHOOK APRN [id number] 04/18/2014 11:21:00 04/18/2014 23: 59:59 CLS Outpatient JAY SHOOK APRN [id number] 04/04/2014 14:52:00 04/04/2014 23: 59:59 NICOLÁS Forte PHD [id number] 03/14/2014 09:37:00 03/14/2014 23: 59:59 JULIEN Outpatient JAY SHOOK APRN [id number] 02/21/2014 08:55:00 02/21/2014 23: 59:59 NICOLÁS Forte PHD [id number] 02/01/2014 08:38:00 02/01/2014 23: 59:59 NICOLÁS Forte PHD
== END 2016-11-15 21:32 | disposition left against medical advice (07) ==
LOC: EDUNIT# 19:31 → ER 19:32
DX: R07.9 Chest pain, unspecified (principal); F17.210 Nicotine dependence, cigarettes, uncomplicated; Z53.29 Procedure and treatment not carried out because of patient's decision for other reasons
CPT/HCPCS: 36415; 71010; 80053; 80306; 80320; 82150; 82550; 82553; 83690; 83735; 83880; 84484; 85025; 85610; 85730; 93005